=== PATIENT | female | born 1950 | race Caucasian/White ===

== ENCOUNTER 2018-11-23 00:07 | Emergency (ER) | payer MEDICARE ==
[2018-11-23] MEDS ORDERED: Ondansetron INJ* 2 MG/ML VIAL IV ONE (01:02)
[2018-11-23] MEDS ORDERED: Morphine 10 MG/ML VIAL (1 ml) IV ONE (01:02)
--- NOTE | 2018-11-23 01:14 | ED ---
HPI Chest Pain - HPI Summary HPI Summary: The patient is a 68 year old female who is presenting to the [facility] with a chief complaint of chest pain. The onset of the chest pain had occurred at 1999. Pain is rated to be a 5/10 in severity and described to be a sharp pressure. Patient denies N/V, but states she has had "labored" breathing. Pertinent PMHx includes heart murmur, HTN, T2 DM and hypercholesteremia and stage 2 Kidney failure. When discussing her stress test result, she states that she had taken one a "couple years ago" and the analysis showed negative findings. Tylenol was taken at home for the pain but it did not alleviate the pain. Symptoms are alleviated by nothing. Symptoms are aggravated by nothing. - History of Current Complaint Chief Complaint: EDChestPainROMI Time Seen by Provider: 11/23/18 00:39 Hx Obtained From: Patient Onset/Duration: Started Hours Ago - 1999 at 11/22/18 Timing: Constant Initial Severity: Moderate Current Severity: Moderate Pain Intensity: 5 Pain Scale Used: 0-10 Numeric Character: Pressure/Squeezing, Sharp/Stabbing Aggravating Factor(s): Nothing Alleviating Factor(s): Nothing Associated Signs and Symptoms: Positive: Other: - Labored breathing. Negative: Nausea, Vomiting - Allergy/Home Medications Allergies/Adverse Reactions: Allergies Allergy/AdvReac Type Severity Reaction Status Date / Time latex Allergy Rash Verified 11/23/18 00:24 Home Medications: Home Medications Amlodipine Besylate [Amlodipine 2.5 mg tab] 2.5 mg PO DAILY 11/23/18 [History Confirmed 11/23/18] Aspirin [Aspirin Childrens 81 MG] 81 mg PO DAILY 11/23/18 [History Confirmed 02/04] Atorvastatin* [Lipitor*] 20 mg PO DAILY 11/23/18 [History Confirmed 11/23/18] Calcitriol [Rocaltrol] 0.25 mcg PO DAILY 11/23/18 [History Confirmed 11/23/18] Carvedilol 3.125 mg PO BID 11/23/18 [History Confirmed 11/23/18] Cholecalciferol (Vitamin D3) [Vitamin D3] 1,000 unit PO DAILY 11/23/18 [History Confirmed 11/23/18] Levothyroxine Sodium 112 mcg PO DAILY 11/23/18 [History Confirmed 11/23/18] Multivitamin [Multivitamins] 1 cap PO DAILY 11/23/18 [History Confirmed 11/23/18 ] Pantoprazole TAB * [Protonix TAB*] 40 mg PO DAILY 11/23/18 [History Confirmed ] PMH/Surg Hx/FS Hx/Imm Hx Infectious Disease History: No Infectious Disease History: Denies: Traveled Outside the [place] in Last 30 Days - Family History Known Family History: Positive: Non-Contributory Family History: FHx reviewed and noncontributory. - Social History Occupation: Retired Lives: With Family Alcohol Use: Occasionally Substance Use Type: Reports: None Smoking Status (MU): Never Smoked Tobacco Review of Systems Constitutional: Negative Eyes: Negative ENT: Negative Positive: Chest Pain Respiratory: Other - Labored breathing Negative: Vomiting, Nausea Genitourinary: Negative Musculoskeletal: Negative Skin: Negative Neurological: Negative Psychological: Normal All Other Systems Reviewed And Are Negative: Yes Physical Exam - Summary Physical Exam Summary: VITAL SIGNS: Reviewed. GENERAL: Patient is a well-developed and nourished (FEMALE) who is lying comfortable in the stretcher. Patient is not in any acute respiratory distress. HEAD AND FACE: No signs of trauma. No ecchymosis, hematomas or skull depressions. No sinus tenderness. EYES: PERRLA, EOMI x 2, No injected conjunctiva, no nystagmus. EARS: Hearing grossly intact. Ear canals and tympanic membranes are within normal limits. MOUTH: Oropharynx within normal limits. NECK: Supple, trachea is midline, no adenopathy, no JVD, no carotid bruit, no c- spine tenderness, neck with full ROM CHEST: Tenderness over the left chest wall LUNGS: Clear to auscultation bilaterally. No wheezing or crackles. CVS: Regular rate and rhythm, S1 and S2 present, no murmurs or gallops appreciated. ABDOMEN: Soft, non-tender. No signs of distention. No rebound no guarding, and no masses palpated. Bowel sounds are normal. EXTREMITIES: FROM in all major joints, no edema, no cyanosis or clubbing. NEURO: Alert and oriented x 3. No acute neurological deficits. Speech is normal and follows commands. SKIN: Dry and warm Triage Information Reviewed: Yes Vital Signs On Initial Exam: Initial Vitals Pulse Resp BP Pulse Ox 68 25 176/86 98 11/23/18 00:13 11/23/18 00:13 11/23/18 00:13 11/23/18 00:13 Vital Signs Reviewed: Yes Diagnostics - Vital Signs Vital Signs Temp Pulse Resp BP Pulse Ox 11/23/18 00:19 98.0 F 66 16 176/86 98 11/23/18 00:13 68 25 176/86 98 - Laboratory Result Diagrams: 11/23/18 01:37 11/23/18 01:36 Lab Statement: Any lab studies that have been ordered have been reviewed, and results considered in the medical decision making process. - Radiology Chest X-ray Radiology Interpretation Completed By: ED Physician Summary of Radiographic Findings: Chest X-ray reveals no acute processes as per ED Physician. - EKG 0011 EKG Rhythm: Sinus Rhythm - 67 BPM Summary of EKG Findings: An EKG at 0011 reveals 67 bpm, normal axis, normal intervals and no ischemic changes. Chest Pain Course/Dx - Course Course Of Treatment: The patient is a 68 year old female who is presenting to the [facility] with a chief complaint of chest pain. Onset of the pain was at 1999. Pain described as sharp and pressure. She reports of labored breathing but denies N/V. patient was given a chest X-ray in the [facility] along with an EKG. PMHx of the patient includes HTN, T2 DM, High cholesterol, and heart murmurs. A stress test was done a couple of years ago as per patient report which revealed negative findings. Two repeat troponins were done and showed negative findings. Heart score of 2. Patient EKG and CXR are also normal. We advised the patient to receive a stress test as an outpatient. Patient's chest pain is highly musculoskeletal because patient has elevated CK. We also advised a floor hand follow up. The patient will be discharged home with a dx of chest pain. - Diagnoses Provider Diagnoses: Chest pain Discharge - Sign-Out/Discharge Documenting (check all that apply): Patient Departure Patient Received Moderate/Deep Sedation with Procedure: No - Discharge Plan Condition: Stable Disposition: HOME Referrals: Lissa Camarillo [Primary Care Provider] - - Attestation Statements Document Initiated by Scribe: Yes Documenting Scribe: Obey Morillo Provider For Whom Scribe is Documenting (Include Credential): Dr. Sal Elfar Scribe Attestation: IObey, scribed for Dr. Sal Quarles on 11/23/18 at 0514. Status of Scribe Document: Ready
[2018-11-23 01:43] LABS: ABS Basophils 0.1 10^3/ul (0-0.2); ABS Eosinophils 0.3 10^3/ul (0-0.6); ABS Lymphocytes 2.7 10^3/ul (1.0-4.8); ABS Monocytes 0.8 10^3/ul (0-0.8); ABS Neutrophils 4.5 10^3/ul (1.5-7.7); Hematocrit 37 % (35-47); Hemoglobin 12.5 g/dL (12.0-16.0); Lymphocyte % 32.7 %; Mean Corpuscular HGB Conc 34 g/dL (31-36); Mean Corpuscular Hemoglobin 32 pg (27-31); Mean Corpuscular Volume 94 fL (80-97); Mean Platelet Volume 8.9 fL (7.4-10.4); Platelet Count 198 10^3/uL (150-450); Red Blood Count 3.92 10^6 /uL (3.70-4.87); Red Cell Distribution Width 13 % (10.5-15); White Blood Count 8.4 10^3/uL (3.5-10.8)
[2018-11-23 01:51] LABS: Activated Partial Thrombo Time 29.5 seconds (26.0-36.3); INR 0.99 (0.82-1.09)
[2018-11-23 02:03] LABS: Albumin/Globulin Ratio 1.7 (1-3); BUN/Creatinine Ratio 25.9 (8-20); Calcium 8.6 mg/dL (8.6-10.3); EGFR African American 60.7 (>60); EGFR Non-African American 50.2 (>60); Globulin 2.4 g/dL (2-4); Potassium 3.9 mmol/L (3.5-5.0); Total Bilirubin 0.6 mg/dL (0.2-1.0); Total Protein 6.4 g/dL (6.4-8.9)
[2018-11-23 02:04] LABS: Troponin I 0.01 ng/mL (<0.04)
[2018-11-23 05:51] VITALS: BP 133/70
== END 2018-11-23 05:53 | disposition home or self-care (01) ==
LOC: ED 00:07
DX: R07.9 Chest pain, unspecified (principal); I12.9 Hypertensive chronic kidney disease with stage 1 through stage 4 chronic kidney disease, or unspecified chronic kidney disease; E11.22 Type 2 diabetes mellitus with diabetic chronic kidney disease; N18.2 Chronic kidney disease, stage 2 (mild); E78.00 Pure hypercholesterolemia, unspecified; R06.02 Shortness of breath; Z91.040 Latex allergy status; Z79.899 Other long term (current) drug therapy; Z79.82 Long term (current) use of aspirin
CPT/HCPCS: 36415; 71045; 80053; 82550; 83735; 83880; 84484; 85025; 85379; 85610; 85730; 93005; 96374; 96375; 99284; J2270; J2405

== ENCOUNTER 2019-02-01 14:33 | Emergency (ER) | payer MEDICARE ==
--- NOTE | 2019-02-01 15:50 | ED ---
Lower Extremity - HPI Summary HPI Summary: This patient is a 68 year old F presenting to [facility] with a chief complaint of right leg pain since approx. 1 month ago. Pt fell from [facility], whole right leg has bothered her ever since. Pt originally called PCP, however they were out of office for a week, and the pain in her leg was bothering her enough to come to ED. Pt has PMHx of Stage 2 kidney disease, and recently had UTI and finished antibiotics. Pt reports limping while walking. - History of Current Complaint Chief Complaint: EDExtremityLower Stated Complaint: RIGHT LEG INJURY PER PATIENT Time Seen by Provider: 02/01/19 15:01 Hx Obtained From: Patient Onset of Pain: Post Accident Onset/Duration: Weeks Severity Initially: Moderate Severity Currently: Moderate Pain Intensity: 4 Pain Scale Used: 0-10 Numeric Timing: Constant, Lasting Weeks Associated Signs And Symptoms: Positive: Knee Pain Aggravating Factor(s): Ambulation, Movement, Weight Bearing - Allergies/Home Medications Allergies/Adverse Reactions: Allergies Allergy/AdvReac Type Severity Reaction Status Date / Time latex Allergy Rash Verified 02/01/19 15:00 PMH/Surg Hx/FS Hx/Imm Hx Endocrine/Hematology History: Reports: Hx Diabetes Sensory History: Denies: Hx Legally Blind EENT History: Denies: Hx Deafness Infectious Disease History: No Infectious Disease History: Denies: Traveled Outside the [place] in Last 30 Days - Family History Known Family History: Positive: Diabetes, Other - Stroke, [place] Family History: FHx reviewed and noncontributory. - Social History Alcohol Use: Occasionally Substance Use Type: Reports: None Smoking Status (MU): Never Smoked Tobacco Review of Systems Negative: Fever Positive: Other - Pain in right leg All Other Systems Reviewed And Are Negative: Yes Physical Exam - Summary Physical Exam Summary: Constitutional: Well-developed, Well-nourished, Alert. (-) Distressed Skin: Warm, Dry HENT: Normocephalic; Atraumatic Eyes: Conjunctiva normal Neck: Musculoskeletal ROM normal neck. (-) JVD, (-) Stridor, (-) Tracheal deviation Cardio: Rhythm regular, rate normal, Heart sounds normal; Intact distal pulses; The pedal pulses are 2+ and symmetric. Radial pulses are 2+ and symmetric. (-) Murmur Pulmonary/Chest wall: Effort normal. (-) Respiratory distress, (-) Wheezes, (-) Rales Abd: Soft, (-) tenderness, (-) Distension, (-) Guarding, (-) Rebound Musculoskeletal: (-) Edema, Tenderness to palpation of right hip, over greater trochanter, right buttock, pain over right lateral leg, tenderness to palpation of lateral cadena over fibula; good pulses, no swelling, mild pain with ROM, negative straight leg raises. Lymph: (-) Cervical adenopathy Neuro: Alert, Oriented x3 Psych: Mood and affect Normal Triage Information Reviewed: Yes Vital Signs On Initial Exam: Initial Vitals Temp Pulse Resp BP Pulse Ox 98.3 F 67 20 127/85 99 02/01/19 14:36 02/01/19 14:36 02/01/19 14:36 02/01/19 14:36 02/01/19 14:36 Vital Signs Reviewed: Yes Diagnostics - Vital Signs Vital Signs Temp Pulse Resp BP Pulse Ox 02/01/19 14:36 98.3 F 67 20 127/85 99 - Laboratory Lab Statement: Any lab studies that have been ordered have been reviewed, and results considered in the medical decision making process. - Radiology Knee X-Ray Radiology Interpretation Completed By: Radiologist Summary of Radiographic Findings: Knee X-Ray reveals, per radiologist, IMPRESSION: 1. No fracture or traumatic malalignment of the right knee. ED physician has reviewed this radiology report. Hip/Pelvis X-Ray Radiology Interpretation Completed By: Radiologist Summary of Radiographic Findings: Hip/Pelvis X-Ray reveals, per radiologist, IMPRESSION: NO EVIDENCE FOR FRACTURE, IF THE PATIENT'S SYMPTOMS PERSIST RECOMMEND FOLLOW-UP IMAGING. ED physician has reviewed this radiology report. Lower Extremity X-Ray Radiology Interpretation Completed By: Radiologist Summary of Radiographic Findings: Lower Extremity X-Ray reveals, per radiologist , IMPRESSION: 1. No displaced fracture. 2. Nonspecific 5 mm ossific structure seen interposed between the proximal tibia and. fibula. This would be unusual location for an avulsed fracture fragment. ED physician has reviewed this radiology report. Re-Evaluation - Re-Evaluation First Eval Re-Evaluation Time: 17:55 Comment: Discussed results and plan of care with pt. Lower Extremity Course/Dx - Course Course Of Treatment: This patient is a 68 year old F presenting to [facility] with a chief complaint of right leg pain since approx. 1 month ago. Pt fell from [facility], whole right leg has bothered her ever since. Pt originally called PCP, however they were out of office for a week, and the pain in her leg was bothering her enough to come to ED. Pt has PMHx of Stage 2 kidney disease, and recently had UTI and finished antibiotics. Pt reports limping while walking. Physical Exam Findings is nml except tenderness to palpation of right hip, over greater trochanter, right buttock, pain over right lateral leg, tenderness to palpation of lateral cadena over fibula; good pulses, no swelling, mild pain with ROM, negative straight leg raises. Lower Extremity X-Ray reveals, per radiologist, IMPRESSION: 1. No displaced fracture. 2. Nonspecific 5 mm ossific structure seen interposed between the proximal tibia and. fibula. This would be unusual location for an avulsed fracture fragment. Knee X-Ray reveals , per radiologist, IMPRESSION: 1. No fracture or traumatic malalignment of the right knee. Hip/Pelvis X-Ray reveals, per radiologist, IMPRESSION: NO EVIDENCE FOR FRACTURE, IF THE PATIENT'S SYMPTOMS PERSIST RECOMMEND FOLLOW-UP IMAGING. In the ED course the patient was given [place] 5-325 2 tab PO. Dx is hip contusion and leg contusion. Patient will be discharged with prescription for HYDROcodone and follow up from Dr. Connolly. The patient is agreeable with this plan. - Diagnoses Provider Diagnoses: Contusion of hip, Contusion of leg Discharge - Sign-Out/Discharge Documenting (check all that apply): Patient Departure - Discharge Patient Received Moderate/Deep Sedation with Procedure: No - Discharge Plan Condition: Stable Disposition: HOME Prescriptions: HYDROcodone/ACETAMIN 5-325 MG* [[place] 5-325 TAB*] 1 tab PO Q4H PRN #15 tab MDD 6 PRN Reason: Pain Patient Education Materials: Contusion in Adults (ED) Print Language: QATARI Referrals: Lissa Camarillo [Primary Care Provider] - Roberto Connolly MD [Medical Doctor] - Additional Instructions: Follow-up with Dr. Connolly, Orthopedic Surgeon. - Billing Disposition and Condition Condition: STABLE Disposition: Home - Attestation Statements Document Initiated by Scribe: Yes Documenting Scribe: [facility] Provider For Whom Scribe is Documenting (Include Credential): Dr. Christine Munoz MD Scribe Attestation: I, Marlin Ly, scribed for Dr. Christine Munoz MD on 02/01/19 at 1952. Scribe Documentation Reviewed: Yes Provider Attestation: The documentation as recorded by the scribe, Marlin Ly accurately reflects the service I personally performed and the decisions made by me, Dr. Christine Munoz MD Status of Scribe Document: Viewed
[2019-02-01] MEDS ORDERED: HYDROcodone/ACETAMIN 5-325 MG* 1 TAB PO ONE (17:50)
[2019-02-01 18:20] VITALS: BP 150/69
== END 2019-02-01 18:18 | disposition home or self-care (01) ==
LOC: ED 14:33
DX: S70.01XA Contusion of right hip, initial encounter (principal); S80.11XA Contusion of right lower leg, initial encounter; W19.XXXA Unspecified fall, initial encounter; Y92.9 Unspecified place or not applicable; E11.22 Type 2 diabetes mellitus with diabetic chronic kidney disease; N18.2 Chronic kidney disease, stage 2 (mild); Z91.040 Latex allergy status
CPT/HCPCS: 99282